=== PATIENT | male | born 1945 ===

== ENCOUNTER → 2018-01-09 13:34 | Outpatient (REF) | payer MEDICARE, SELFPAY | LOC: LAB 13:34 | PROVIDERS: Visit Provider Otolaryngology Facial Plastic Surgery | DX: H90.A22 Sensorineural hearing loss, unilateral, left ear, with restricted hearing on the contralateral side (principal); H90.A31 Mixed conductive and sensorineural hearing loss, unilateral, right ear with restricted hearing on the contralateral side; H69.81 Other specified disorders of Eustachian tube, right ear; H92.11 Otorrhea, right ear; H66.011 Acute suppurative otitis media with spontaneous rupture of ear drum, right ear; H73.0 Acute myringitis | CPT/HCPCS: 87070; 87077; 87186; 87205 ==